=== PATIENT | male | born 1995 | race Two or more races ===

== ENCOUNTER → 2021-07-01 | Outpatient (CLI) | payer OTHER | END | disposition home or self-care (01) | LOC: PPH VACUNA 07:00 | PROVIDERS: ATTEND Emergency Medicine Pediatric Emergency Medicine | DX: Z23 Encounter for immunization (principal) ==

== ENCOUNTER 2022-09-07 11:04 | Outpatient (CLI) | payer OTHER | END 2022-09-07 11:12 | disposition home or self-care (01) | LOC: SONOGRAMA 11:04 | DX: E80.6 Other disorders of bilirubin metabolism (principal) ==

== ENCOUNTER 2022-09-08 16:21 | Outpatient (CLI) | payer OTHER | END 2022-09-08 16:22 | disposition home or self-care (01) | LOC: RAD 16:21 | PROVIDERS: ATTEND General Practice | DX: R10.31 Right lower quadrant pain (principal) ==